=== PATIENT | male | born 1955 | race Caucasian/White ===

== ENCOUNTER → 2021-04-26 | Outpatient (CLI) | payer BC ==
[~2021-04-26] MED LIST: ALFU10TA3 PO; CYCL-707 PO; IBUP80TA PO; LISI10TA22 PO
== END ==
LOC: M LABSMTC 10:48
PROVIDERS: ATTEND Anesthesiology
DX: Z01.818 Encounter for other preprocedural examination (principal); Z11.52 Encounter for screening for COVID-19

== ENCOUNTER 2021-05-01 08:37 | Day surgery (SDC) | payer OTHER ==
[~2021-05-01] VITALS: Ht 172.7 cm; Wt 71.2 kg
[~2021-05-01 08:37] MED LIST changes: +NS 1,000 ML IV ONE
[2021-05-01] MEDS ORDERED: LIDOCAINE 2% 100MG/5ML SDV (FOR ANES.) As Ordered ONE (09:51)
[2021-05-01] MEDS ORDERED: propofoL 200 MG/20 ML VIAL As Ordered ONE ×3 (09:51→10:14)
[2021-05-01] MEDS ORDERED: GLUCAGON INJ 1MG VIAL As Ordered ONE (10:13)
--- NOTE | 2021-05-01 10:24 | ROOR ---
Patient Name: Braxton Vasques Procedure Date: 05/01/2021 9:43 AM Date of : 1955 Age: 65 Room: [facility] Gender: Male Note Status: Finalized Procedure: Colonoscopy Indications: High risk colon cancer surveillance: Personal history of colonic polyps, Last colonoscopy: April 2016 Providers: Kalia Willard MD Referring MD: [facility], Admin. Requesting Provider: Medicines: Monitored Anesthesia Care Complications: No immediate complications. Procedure: Pre-Anesthesia Assessment: - The heart rate, respiratory rate, oxygen saturations, blood pressure, adequacy of pulmonary ventilation, and response to care were monitored throughout the procedure. The Colonoscope was introduced through the anus and advanced to the terminal ileum, with identification of the appendiceal orifice and IC valve. The colonoscopy was performed without difficulty. The patient tolerated the procedure well. The quality of the bowel preparation was good. Findings: The perianal and digital rectal examinations were normal. Five polyps were found in the hepatic flexure, ascending colon and cecum. The polyps were 3 to 6 mm in size. These polyps were removed with a cold snare. Resection and retrieval were complete. Six semi-sessile polyps were found in the sigmoid colon and descending colon. The polyps were 6 to 9 mm in size. These polyps were removed with a cold snare. Resection and retrieval were complete. Mild sigmoid diverticulosis and small internal hemorrhoids. Impression: - Five 3 to 6 mm polyps at the hepatic flexure, in the ascending colon and in the cecum, removed with a cold snare. Resected and retrieved. - Six 6 to 9 mm polyps in the sigmoid colon and in the descending colon, removed with a cold snare. Resected and retrieved. - Mild sigmoid diverticulosis and small internal hemorrhoids. Recommendation: - Repeat colonoscopy in 2 years for surveillance of multiple (>10) polyps. Procedure Code(s): --- Professional --- 00636, Colonoscopy, flexible; with removal of tumor(s), polyp(s), or other lesion(s) by snare technique Diagnosis Code(s): --- Professional --- K63.5, Polyp of colon Z86.010, Personal history of colonic polyps CPT copyright 2019 [employer]. All rights reserved. The codes documented in this report are preliminary and upon pan devulcanizer helper review may be revised to meet current compliance requirements. Kalia Willard MD Kalia Willard MD 05/01/2021 10:24:43 AM Electronically signed by Kalia Willard MD Number of Addenda: 0 Note Initiated On: 05/01/2021 9:43 AM Estimated Blood Loss: Estimated blood loss: none.
[2021-05-01 10:40] VITALS: BP 146/84
== END 2021-05-01 10:47 | disposition home or self-care (01) ==
LOC: M OPP 08:37
PROVIDERS: ATTEND Internal Medicine Gastroenterology
DX: Z12.11 Encounter for screening for malignant neoplasm of colon (principal); Z86.010 Personal history of colon polyps; Z80.0 Family history of malignant neoplasm of digestive organs; K63.5 Polyp of colon; K57.30 Diverticulosis of large intestine without perforation or abscess without bleeding; K64.8 Other hemorrhoids; Z79.899 Other long term (current) drug therapy
CPT/HCPCS: 45385; 88305; J1610

== ENCOUNTER 2023-11-29 12:55 | Day surgery (SDC) | payer OTHER ==
[~2023-11-29] VITALS: Ht 175.3 cm; Wt 72.6 kg
[~2023-11-29 12:55] MED LIST changes: -NS 1,000 ML IV ONE
[2023-11-29] MEDS ORDERED: propofoL 200 MG/20 ML VIAL As Ordered ONE (15:52)
[2023-11-29] MEDS ORDERED: LIDOCAINE 2% 100MG/5ML SDV (FOR ANES.) As Ordered ONE (15:53)
[2023-11-29 16:47] VITALS: BP 112/57; O2SAT 96
== END 2023-11-29 16:50 | disposition home or self-care (01) ==
LOC: M OPP 12:55
PROVIDERS: ATTEND Internal Medicine Gastroenterology
DX: Z86.010 Personal history of colon polyps (principal); Z80.0 Family history of malignant neoplasm of digestive organs; D12.3 Benign neoplasm of transverse colon; K64.8 Other hemorrhoids; K57.30 Diverticulosis of large intestine without perforation or abscess without bleeding; G47.9 Sleep disorder, unspecified; F17.200 Nicotine dependence, unspecified, uncomplicated; Z79.84 Long term (current) use of oral hypoglycemic drugs; Z79.891 Long term (current) use of opiate analgesic; Z79.899 Other long term (current) drug therapy